=== PATIENT | male | born 1970 | race Caucasian/White ===

== ENCOUNTER 2018-09-17 22:54 | Observation (INO) | payer MEDICARE, MEDICAID ==
[~2018-09-17] VITALS: Ht 175.3 cm; Wt 118.2 kg
[~2018-09-17 22:54] MED LIST: ALFU10TA10 PO; CYCL-394; RANI150T8 PO
[2018-09-17] MEDS ORDERED: normal saline 1000ml 1,000 ML IV ONE (23:07)
[2018-09-17 23:36] LABS: BASOPHILS % (AUTO) 0.4 % (0-1); EOSINOPHILS # (AUTO) 0.3 X10'3 (0-0.9); HEMATOCRIT 41.6 % (42.0-52.0); HEMOGLOBIN 13.7 g/dl (14.0-17.9); LYMPHOCYTES # (AUTO) 1.3 X10'3 (1.1-4.8); LYMPHOCYTES % (AUTO) 12.5 % (21-51); MEAN CORPUSCULAR HEMOGLOBIN 29.4 PG (27.0-31.0); MEAN CORPUSCULAR VOLUME 89.2 FL (78-98); MEAN PLATELET VOLUME 8.2 FL (7.4-10.4); NEUTROPHILS # (AUTO) 7.7 X10'3 (1.8-7.7); NEUTROPHILS % (AUTO) 74.1 % (42-75); PLATELET COUNT 299 X10'3 (140-440); RED BLOOD COUNT 4.66 X10'6 (4.70-6.10); RED CELL DISTRIBUTION WIDTH 15.2 % (11.5-14.5); WHITE BLOOD COUNT 10.4 X10'3 (4.5-11.0)
[2018-09-18 00:01] LABS: PARTIAL THROMBOPLASTIN TIME 30 SECONDS (22-32)
[2018-09-18 00:06] LABS: ALANINE AMINOTRANSFERASE 33 U/L (12-78); ALBUMIN 3.6 G/DL (3.4-5.0); ALKALINE PHOSPHATASE 150 IU/L (46-116); ANION GAP 10 (8-16); ASPARTATE AMINO TRANSFERASE 23 U/L (10-37); BILIRUBIN,TOTAL 0.5 MG/DL (0.1-1.0); BLOOD UREA NITROGEN 12 MG/DL (7-18); BUN/CREATININE RATIO 11.2 (5.4-32.0); CALCIUM 8.9 MG/DL (8.5-10.1); CHLORIDE 93 MMOL/L (99-107); CREATININE 1.07 MG/DL (0.60-1.10); MAGNESIUM 1.9 MG/DL (1.5-2.4); POTASSIUM 4.6 MMOL/L (3.5-5.1); SODIUM 128 MMOL/L (135-145); TOTAL CARBON DIOXIDE 25.3 MMOL/L (24-32); TOTAL PROTEIN 7.2 G/DL (6.4-8.2); eGFR 74 ML/MIN
[2018-09-18 00:09] LABS: ETHANOL < 0.010 GM/DL (0.0-0.010); GLUCOSE 480 MG/DL (70-104)
[2018-09-18] MEDS ORDERED: normal saline 1000ML IV soln IVB ONE (00:10)
[2018-09-18] MEDS ORDERED: magnesium hydroxide 30ml (MOM) UD suspension PO PRN (02:15)
[2018-09-18] MEDS ORDERED: MESSAGE TO PHARMACY PO ONE (02:15)
[2018-09-18] MEDS ORDERED: glucagon, human recombinant 1mg kit SUBCUT PRN (02:15)
[2018-09-18] MEDS ORDERED: dextrose 50%-water 50ml dispensing syringe IV PRN ×2 (02:15)
[2018-09-18] MEDS ORDERED: dextrose ORAL solution 15 GM/59 ML bottle PO PRN ×2 (02:15)
[2018-09-18] MEDS ORDERED: acetaminophen 325mg tablet PO PRN (02:15)
[2018-09-18] MEDS ORDERED: magnesium 4gm in 100ml NS 100 ML IV PRN (02:15)
[2018-09-18] MEDS ORDERED: mag hydrox/Alum hydrox/simeth 30ml oral suspension PO PRN (02:15)
[2018-09-18] MEDS ORDERED: magnesium 2GM in 50ml NS 50 ML IV PRN (02:15)
[2018-09-18] MEDS ORDERED: potassium Cl 40MEQ/NS 500ml 500 ML IV PRN ×2 (02:15)
[2018-09-18] MEDS ORDERED: magnesium Cl slow-release 64mg tablet PO PRN (02:15)
[2018-09-18] MEDS ORDERED: potassium Cl 20 mEq SR tablet PO PRN ×2 (02:15)
[2018-09-18] MEDS ORDERED: ESOM40CA49 PO (02:18)
[2018-09-18] MEDS ORDERED: CLON0.1T PO (02:18)
[2018-09-18] MEDS ORDERED: INSU100C4 SQ (02:20)
--- NOTE | 2018-09-18 02:50 | NUR ---
pt arrived to room 4009b from er, accompanied by his . pt has been oriented to his room. vss. received report from kim Liao prior to pt's arrival.
[2018-09-18 03:00] VITALS: BP 98/81
[2018-09-18 03:52] LABS: CLARITY,URINE CLEAR (Clear); COLOR,URINE YELLOW (Yellow); GLUCOSE, URINE >=1000 mg/dl (Neg); KETONES,URINE NEGATIVE (Neg); LEUKOCYTE ESTERASE ,URINE NEGATIVE (Neg); NITRITES, URINE NEGATIVE (Neg); OCCULT BLOOD,URINE TRACE-INTACT (Neg); PROTEIN,URINE NEGATIVE (Neg); UROBILINOGEN,URINE 0.2 E.U/dL (0.2-1.0)
[2018-09-18 03:54] LABS: URINE AMPHETAMINE SCREEN NEGATIVE (Neg); URINE BARBITUATE SCREEN NEGATIVE (Neg); URINE BENZODIAZEPINES SCREEN NEGATIVE (Neg); URINE CANNABINOID SCREEN NEGATIVE (Neg); URINE COCAINE SCREEN NEGATIVE (Neg); URINE METHADONE SCREEN NEGATIVE (Neg); URINE OPIATE SCREEN NEGATIVE (Neg); URINE PHENCYCLIDINE SCREEN NEGATIVE (Neg)
[2018-09-18] MEDS: insulin Lispro (HumaLOG) vial - multi-dose SQ SCH ×3 (03:56→20:39)
[2018-09-18] MEDS: normal saline 1000ml 1,000 ML IV SCH ×3 (03:57→22:15)
[2018-09-18 03:58] LABS: BACTERIA,URINE NONE SEEN /HPF (Neg); RBC,URINE 0-2 /HPF (0-2); SQUAMOUS EPITHELIAL CELL,UR FEW /LPF (FEW); UA COLLECTION TYPE CLN CATCH MIDSTREAM; WBC,URINE NONE SEEN /HPF (0-4)
--- NOTE | 2018-09-18 06:25 | NUR ---
Problems reprioritized. Patient report given, questions answered & plan of care reviewed with kim Louis.
[2018-09-18 06:53] VITALS: BP 115/70
[2018-09-18] MEDS: pantoprazole 40mg Tablet.DR PO SCH ×2 (07:20→07:24)
[2018-09-18] MEDS: ondansetron/PF 4mg/2ml inj IV PRN (07:20)
[2018-09-18] MEDS: K and/or MAG REPLACEMENT MC SCH (07:25)
[2018-09-18] MEDS ORDERED: alfuzosin 10MG TAB.SR.24H PO SCH (08:00)
[2018-09-18 10:00] VITALS: BP 111/60
--- NOTE | 2018-09-18 11:42 | NUR ---
DM Consult: A1C 9.0. Pt admit w/ psychosis hx MS causing dysarthria and dysphagia as well as falls per MD note. Slurring and weakness is baseline per in EMR. Advanced to mechanical soft/ground/thin liquids per METAL FILER today; RD d/w RN to add carb controlled diet as well given hx T1DM. GLU 491 on admit which could also effect mental status. Pt GLU dropped to 33 from now 138 this AM s/p DEX. Unsure if error given pt received only 2 units of humalog for GLU 300's prior to 33 reading. On hyperglycemia protocol. Will monitor for PO hx and ONS needs this admit. LBM 09/17. DM ed not appropriate at this time given DX; will need DM ed prior to d/c. Rec: 1. continue mechanical soft/ground/thin liquids per METAL FILER 2. monitor for ONS needs 3. wt per rx 4. DM ed prior to d/c once appropriate Addendum: 09/18/18 at [address] Amended: Links added.
[2018-09-18] MEDS ORDERED: gadopentetate dimeglumine 10 MMOL/20 ML syringe IV ONE ×2 (13:45)
[2018-09-18 14:00] VITALS: BP 126/105
[2018-09-18 18:00] VITALS: BP 137/57
--- NOTE | 2018-09-18 18:19 | NUR ---
Patient in room ORTHO 4009. I have received report from kim Louis and had the opportunity to ask questions and assume patient care.
--- NOTE | 2018-09-18 18:26 | NUR ---
REPORT TO TRI DAMON
[2018-09-18] MEDS: tamsulosin 0.4mg capsule PO SCH (20:24)
[2018-09-18] MEDS: predniSONE 20 mg tablet PO SCH (20:25)
[2018-09-18] MEDS: cloNIDine 0.1 mg tablet PO SCH (20:25)
[2018-09-18] MEDS: insulin glargine (Lantus) pen - multi-dose SQ SCH (20:38)
[2018-09-18 22:00] VITALS: BP 139/56
[2018-09-19 06:11] LABS: HEMATOCRIT 41.7 % (42.0-52.0); MEAN CORPUSCULAR HEMOGLOBIN 29.6 PG (27.0-31.0); MEAN CORPUSCULAR HGB CONC 33.7 g/dL (33.0-36.5); MEAN CORPUSCULAR VOLUME 87.7 FL (78-98); MEAN PLATELET VOLUME 8.3 FL (7.4-10.4); PLATELET COUNT 254 X10'3 (140-440); RED BLOOD COUNT 4.75 X10'6 (4.70-6.10); RED CELL DISTRIBUTION WIDTH 15.3 % (11.5-14.5); WHITE BLOOD COUNT 6.1 X10'3 (4.5-11.0)
[2018-09-19 06:13] VITALS: BP 119/75
--- NOTE | 2018-09-19 06:25 | NUR ---
Problems reprioritized. Patient report given, questions answered & plan of care reviewed with NELSON HO.
[2018-09-19 06:42] LABS: ANION GAP 15 (8-16); BLOOD UREA NITROGEN 12 MG/DL (7-18); BUN/CREATININE RATIO 18.8 (5.4-32.0); CALCIUM 8.6 MG/DL (8.5-10.1); CHLORIDE 100 MMOL/L (99-107); CREATININE 0.64 MG/DL (0.60-1.10); GLUCOSE 286 MG/DL (70-104); MAGNESIUM 1.7 MG/DL (1.5-2.4); POTASSIUM 4.4 MMOL/L (3.5-5.1); SODIUM 133 MMOL/L (135-145); TOTAL CARBON DIOXIDE 18.5 MMOL/L (24-32); eGFR > 90 ML/MIN
--- NOTE | 2018-09-19 06:56 | NUR ---
RECEIVED REPORT FROM TRI DAMON
[2018-09-19] MEDS: K and/or MAG REPLACEMENT MC SCH (07:50)
[2018-09-19] MEDS: pantoprazole 40mg Tablet.DR PO SCH (07:57)
[2018-09-19] MEDS: predniSONE 20 mg tablet PO SCH (07:57)
[2018-09-19] MEDS: ondansetron/PF 4mg/2ml inj IV PRN (07:58)
[2018-09-19] MEDS: normal saline 1000ml 1,000 ML IV SCH (08:25)
[2018-09-19] MEDS: insulin Lispro (HumaLOG) vial - multi-dose SQ SCH ×4 (09:08→21:42)
[2018-09-19 09:49] VITALS: BP 112/66
[2018-09-19] MEDS ORDERED: PRED10TA23 PO (11:22)
[2018-09-19] MEDS ORDERED: PALIPERIDONE 3 MG TAB.ER.24 PO ONE (14:30)
[2018-09-19 18:00] VITALS: BP 137/66
--- NOTE | 2018-09-19 18:32 | NUR ---
RECEIVED REPORT FROM [place] DAMON AND ASSUMED PATIENT CARE ALONG WITH ORIENTING NURSE UCHE DAMON
[2018-09-19] MEDS: tamsulosin 0.4mg capsule PO SCH (20:05)
[2018-09-19] MEDS: cloNIDine 0.1 mg tablet PO SCH (20:05)
[2018-09-19] MEDS: insulin glargine (Lantus) pen - multi-dose SQ SCH (21:38)
[2018-09-19 22:00] VITALS: BP 161/99
[2018-09-20 02:00] VITALS: BP 123/60
[2018-09-20 06:00] VITALS: BP 179/101
[2018-09-20 06:04] LABS: HEMATOCRIT 41.3 % (42.0-52.0); HEMOGLOBIN 13.6 g/dl (14.0-17.9); MEAN CORPUSCULAR HEMOGLOBIN 29.4 PG (27.0-31.0); MEAN CORPUSCULAR HGB CONC 32.9 g/dL (33.0-36.5); MEAN CORPUSCULAR VOLUME 89.3 FL (78-98); MEAN PLATELET VOLUME 8.8 FL (7.4-10.4); PLATELET COUNT 286 X10'3 (140-440); RED BLOOD COUNT 4.63 X10'6 (4.70-6.10); RED CELL DISTRIBUTION WIDTH 15.5 % (11.5-14.5); WHITE BLOOD COUNT 11.6 X10'3 (4.5-11.0)
--- NOTE | 2018-09-20 06:11 | NUR ---
Patient report given to Tatianna RN and Aruna Student Nurse, questions answered & plan of care reviewed them.
--- NOTE | 2018-09-20 06:11 | NUR ---
received report from kim becerra
[2018-09-20 06:17] LABS: ALBUMIN 3.3 G/DL (3.4-5.0); ANION GAP 14 (8-16); BLOOD UREA NITROGEN 21 MG/DL (7-18); BUN/CREATININE RATIO 26.3 (5.4-32.0); CALCIUM 8.8 MG/DL (8.5-10.1); CHLORIDE 99 MMOL/L (99-107); GLUCOSE 424 MG/DL (70-104); MAGNESIUM 1.9 MG/DL (1.5-2.4); POTASSIUM 4.2 MMOL/L (3.5-5.1); SODIUM 132 MMOL/L (135-145); TOTAL CARBON DIOXIDE 19.3 MMOL/L (24-32); eGFR > 90 ML/MIN
[2018-09-20] MEDS: K and/or MAG REPLACEMENT MC SCH (07:29)
[2018-09-20 07:30] VITALS: BP 156/90
[2018-09-20] MEDS: predniSONE 20 mg tablet PO SCH (07:38)
[2018-09-20] MEDS: pantoprazole 40mg Tablet.DR PO SCH (07:38)
[2018-09-20] MEDS: normal saline 1000ml 1,000 ML IV SCH ×2 (07:43→07:44)
[2018-09-20] MEDS ORDERED: PALIPERIDONE 3 MG TAB.ER.24 PO SCH (08:00)
[2018-09-20] MEDS: insulin Lispro (HumaLOG) vial - multi-dose SQ SCH ×2 (08:32→13:10)
[2018-09-20] MEDS ORDERED: PALI3TAB5 PO (08:56)
[2018-09-20 10:00] VITALS: BP 150/97
--- NOTE | 2018-09-20 10:11 | NUR ---
PT RECEIVED SHOWER THIS MORNING AND TELLS ME THAT HE FEELS BETTER
--- NOTE | 2018-09-20 13:19 | NUR ---
CHARGE NURSE GAVE REPORT TO BEHAVIORAL HEALTH NURSE, FLOOR NURSE WENT OVER PT D/C PAPERWORK W/PT AND [facility], PT WHEELED DOWN TO BEHAVIORAL HEALTH IN WHEELCHAIR W/ALL BELONGINGS ACCOMPANIED BY FAM MEMBER AND BEHAVIORAL HEALTH NURSE
[2018-09-20] MEDS ORDERED: PRED5TAB PO ×4 (15:14)
[2018-09-20] MEDS ORDERED: ALFU10TA10 PO (15:14)
[2018-09-20] MEDS ORDERED: INSU100C4 SQ (15:14)
[2018-09-20] MEDS ORDERED: ESOM40CA PO (15:14)
[2018-09-20] MEDS ORDERED: CYCL-394 PO (15:14)
[2018-09-20] MEDS ORDERED: CLON-529 PO (15:14)
[2018-09-24] MEDS ORDERED: TRAZ-251 PO (09:31)
[2018-09-24] MEDS ORDERED: HYDR-3686 PO (09:31)
[2018-09-24] MEDS ORDERED: LAMO25TA5 PO (09:31)
[2018-09-24] MEDS ORDERED: PALI3TAB5 PO (09:31)
[2018-09-24] MEDS ORDERED: PRED10TA23 PO (09:31)
[2018-09-24] MEDS ORDERED: MIRT15TA8 PO (09:31)
== END 2018-09-20 13:15 | disposition home or self-care (01) ==
LOC: ER 22:55 → INTOOBSV 09-18 02:47 → ORTHO 4S 09-18 02:47
PROVIDERS: ADMIT Family Medicine; ATTEND Internal Medicine
DX: R41.82 Altered mental status, unspecified (principal); R44.1 Visual hallucinations; G35 Multiple sclerosis; E10.65 Type 1 diabetes mellitus with hyperglycemia; F32.3 Major depressive disorder, single episode, severe with psychotic features; F41.8 Other specified anxiety disorders; F31.9 Bipolar disorder, unspecified; K25.9 Gastric ulcer, unspecified as acute or chronic, without hemorrhage or perforation; G93.40 Encephalopathy, unspecified; E87.1 Hypo-osmolality and hyponatremia; F22 Delusional disorders; F17.210 Nicotine dependence, cigarettes, uncomplicated
CPT/HCPCS: 36415; 70450; 70544; 70553; 71045; 80048; 80053; 80305; 80320; 81001; 82948; 83036; 83735; 84443; 84484; 85025; 85027; 85610; 85651; 85730; 87070; 92508; 92526; 92616; 93005; 96372; 96374; 96375; 96376; 97116; 97161; 97530; 99284; A9579; G0378; J2405; J7030; J7512; 96360; 99285; J1815

== ENCOUNTER 2018-11-17 19:54 | Emergency (ER) | payer MEDICARE, MEDICAID ==
[~2018-11-17] VITALS: Ht 172.7 cm; Wt 113.2 kg
[~2018-11-17 19:54] MED LIST changes: +CLON-529 PO; +CLON0.1T PO; +CYCL-394 PO; +ESOM40CA PO; +ESOM40CA49 PO; +HYDR-3686 PO; +INSU100C4 SQ; +LAMO25TA5 PO; +MIRT15TA8 PO; +PALI3TAB5 PO; +PRED10TA23 PO; +PRED5TAB PO; -RANI150T8 PO; +TRAZ-251 PO
[2018-11-17 19:57] VITALS: BP 161/92
[2018-11-17] MEDS ORDERED: LORazepam 1 MG tablet PO ONE (20:55)
== END 2018-11-17 22:08 | disposition home or self-care (01) ==
LOC: ER 19:55
DX: F32.9 Major depressive disorder, single episode, unspecified (principal); F41.9 Anxiety disorder, unspecified; E11.9 Type 2 diabetes mellitus without complications; F12.90 Cannabis use, unspecified, uncomplicated; G35 Multiple sclerosis; Z98.890 Other specified postprocedural states; Z88.0 Allergy status to penicillin; Z88.8 Allergy status to other drugs, medicaments and biological substances; Z79.899 Other long term (current) drug therapy; Z79.4 Long term (current) use of insulin
CPT/HCPCS: 99284